=== PATIENT | female | born 1950 | race Caucasian/White ===

== ENCOUNTER 2017-02-10 22:46 | Emergency (ER) | payer OTHER | END 2017-02-11 02:35 | disposition left against medical advice (07) | LOC: ER1 22:46 | DX: Z53.21 Procedure and treatment not carried out due to patient leaving prior to being seen by health care provider (principal) ==

== ENCOUNTER 2021-05-03 10:11 | Emergency (ER) | payer OTHER ==
[~2021-05-03 10:11] MED LIST: DUONEB NEB; EXPECTORANT200 MG PO; PREDNISONE 50 M50 MG PO; VIBRAMYCIN100 MG PO
[2021-05-03 12:47] LABS: HEMOGLOBIN 14.4 gm/dl (12.3-15.3); RED BLOOD COUNT 4.58 M/UL (4.00-5.10); WHITE BLOOD COUNT 13.1 K/UL (4.5-11.0)
[2021-05-03 13:22] LABS: BUN/CREATININE RATIO 20 (0-10)
== END 2021-05-03 16:46 | disposition left against medical advice (07) ==
LOC: ER1 10:11
PROVIDERS: Emergency Medicine
DX: R05.9 Cough, unspecified (principal); M54.50 Low back pain, unspecified; Z20.822 Contact with and (suspected) exposure to COVID-19; F17.210 Nicotine dependence, cigarettes, uncomplicated
CPT/HCPCS: 71045; 80053; 81001; 82550; 82553; 83880; 84484; 85025; 85610; 85730; 99283; U0002

== ENCOUNTER 2021-05-11 16:27 | Emergency (ER) | payer OTHER ==
[2021-05-11 18:02] LABS: HEMOGLOBIN 14.5 gm/dl (12.3-15.3); RED BLOOD COUNT 4.62 M/UL (4.00-5.10); WHITE BLOOD COUNT 11.9 K/UL (4.5-11.0)
[2021-05-11 18:24] LABS: BUN/CREATININE RATIO 25 (0-10)
[2021-05-11] MEDS ORDERED: AZITHROMYCIN500 MG PO (19:58)
[2021-05-11] MEDS ORDERED: PREDNISONE 20 M20 MG PO (19:58)
[2021-05-11] MEDS ORDERED: PROVENTIL HFA6.7 GM INH (19:58)
== END 2021-05-11 20:10 | disposition home or self-care (01) ==
LOC: ER1 16:27
PROVIDERS: Emergency Medicine
DX: J44.1 Chronic obstructive pulmonary disease with (acute) exacerbation (principal); I25.10 Atherosclerotic heart disease of native coronary artery without angina pectoris; F17.210 Nicotine dependence, cigarettes, uncomplicated; Z20.822 Contact with and (suspected) exposure to COVID-19
CPT/HCPCS: 0240U; 36600; 71045; 80048; 82550; 82553; 82803; 83874; 83880; 84484; 85025; 85379; 93005; 94664; 96374; 99285; J2930

== ENCOUNTER → 2021-06-18 | Outpatient (CLI) | payer OTHER ==
[~2021-06-18] MED LIST changes: +AZITHROMYCIN500 MG PO; +PREDNISONE 20 M20 MG PO; +PROVENTIL HFA6.7 GM INH
== END ==
LOC: MAMO 08:16
DX: Z12.31 Encounter for screening mammogram for malignant neoplasm of breast (principal)
CPT/HCPCS: 77063; 77067

== ENCOUNTER → 2021-06-30 | Outpatient (CLI) | payer OTHER | LOC: HEART 5 08:42 | DX: J44.9 Chronic obstructive pulmonary disease, unspecified (principal) | CPT/HCPCS: 94010; 94060; 94729 ==